=== PATIENT | male | born 1970 | race Caucasian/White ===

== ENCOUNTER → 2023-06-09 13:45 | Outpatient (REF) | payer OTHER, SELFPAY | LOC: HWRAD 13:45 | PROVIDERS: ATTENDING PHYSICIAN Family Medicine | DX: R10.32 Left lower quadrant pain (principal); R10.31 Right lower quadrant pain | CPT/HCPCS: 74177; Q9967 ==

== ENCOUNTER → 2023-11-23 07:44 | Emergency (ER) | payer OTHER, SELFPAY ==
[2023-11-23 07:45] VITALS: BP 167/110
--- NOTE | 2023-11-23 08:09 | ED.GENMED ---
History of Present Illness
<Michelle Centeno PA-C - Last Filed: 11/23/23 09:46>
General
Chief Complaint: Headache
Source: patient
Time Seen by Provider: 11/23/23 07:55
History of Present Illness
History of Present Illness:
53yoM with a history of hypertension, gout, and a prior provoked DVT after traveling presenting for evaluation of a headache. He reports a headache that began 2 days ago. The headache started within a few seconds. He states it felt like blood was
rushing into his head. The headache was a 7/10 at its worst. He started with a 'prickly' sensation in his bilateral forearms yesterday, L>R, which continued into this morning. He continues to have a headache but he states the pain is much better
today. His current headache is described as a bitemporal pressure which he rates a 4/10 in severity. He is otherwise asymptomatic and denies any fevers, neck stiffness, vomiting, visual changes, dizziness, weakness, gait difficulty, chest pain,
shortness of breath. No head trauma. He would also like to be tested for Lyme disease. He takes a baby aspirin daily for prevention.
Past History
<Michelle Centeno PA-C - Last Filed: 11/23/23 09:46>
Past History
ED Past Medical History: Other
Social History
Tobacco: Non-smoker
Alcohol: Occasional
Personal:
Living: with family
Employment: Employed
Family History
Family History: Negative Early CAD or CAD
Phy Exam
<Michelle Centeno PA-C - Last Filed: 11/23/23 09:46>
General Physical Exam
General Presentation: well appearing and no apparent distress
General age: appears stated age
General Skin: warm and dry
General Habitus: normal
General Mental: alert
Cardiovascular Exam
Cardiovascular Exam: regular rate/rhythm, no edema and no murmur
Pulmonary Exam
Pulmonary Exam: lungs clear, no respiratory distress, no crackles and no wheezing
Neurological Exam
Neurological Exam: alert, CN II-XII intact, no motor deficits and other (CN 2-12 intact. PERRL. EOMs intact. 5/5 strength and sensation intact in all extremities. Negative drift x4. Normal finger to nose and heel to lazo bilaterally. )
NIH Stroke Score
Level of Consciousness: 0 - Alert
LOC questions: 0-Answers both correctly
LOC Commands: 0-Performs both correctly
Best Gaze: 0-Normal
Visual [place]: 0=Normal, no visual loss
Facial palsy: 0=Normal, symmetrical
Motor - Right Arm: 0=No drift 10 seconds
Motor - Left Arm: 0=No drift 10 seconds
Motor - Right Le-No drift 5 seconds
Motor - Left Le-No drift 5 seconds
Limb Ataxia: 0-Absent
Sensation: 0-Normal
Best Language: 0-No aphasia
Dysarthria: 0-Normal
Extinction and Inattention: 0-No abnormality
Total Score:: 0
[place] Coma Scale
Eye Opening: Spontaneous
Verbal Response: Oriented
Motor Response: Obeys Commands
GCS Total Score: 15
Skin Exam
Skin Exam: normal color and warm/dry
Psychiatric Exam
Psychiatric Exam: normal mood/affect
<Crystal Landaverde MD - Last Filed: 11/23/23 08:39>
NIH Stroke Score
Total Score:: 0
[place] Coma Scale
GCS Total Score: 15
Course
<Michelle Centeno PA-C - Last Filed: 11/23/23 09:46>
Orders/Labs/Results
Orders:
Orders
11/23/23 08:08
Electrocardiogram (*1) Urgent
Reason for Study: Other
Other Reason for Exam: arm tingling
CT Head W/o Iv Contrast Urgent
Comment:
Reason For Exam: Headache, arm tingling
EKG- Treatment ONCE
11/23/23 08:46
Complete Blood Count/With Diff Urgent
Comprehensive Metabolic Panel Urgent
Lyme Progressive Urgent
Abnormal Lab Results
11/23/23
08:46
WBC 4.6 L 10^3/uL
(4.8-10.8)
RBC 4.26 L 10^6/uL
(4.70-6.10)
Hgb 12.9 L g/dL
(13.0-18.0)
Hct 36.0 L %
(39.0-52.0)
Glucose 101 H mg/dl
(70-99)
11/23/23 08:46
11/23/23 08:46
Vital Signs
Initial and Last Documented VS:
Initial Vital Signs
Temp Pulse Resp BP Pulse Ox
98.7 F 54 18 167/110 96
11/23/23 07:45 11/23/23 07:45 11/23/23 07:45 11/23/23 07:45 11/23/23 07:45
Last Documented Vital Signs
Temp Pulse Resp BP Pulse Ox
98.7 F 50 17 134/89 97
11/23/23 07:45 11/23/23 09:20 11/23/23 09:20 11/23/23 09:20 11/23/23 09:20
<Crystal Landaverde MD - Last Filed: 11/23/23 08:39>
Orders/Labs/Results
Orders:
Orders
11/23/23 08:08
Electrocardiogram (*1) Urgent
Reason for Study: Other
Other Reason for Exam: arm tingling
CT Head W/o Iv Contrast Urgent
Comment:
Reason For Exam: Headache, arm tingling
EKG- Treatment ONCE
11/23/23 08:46
Complete Blood Count/With Diff Urgent
Comprehensive Metabolic Panel Urgent
Lyme Progressive Urgent
Abnormal Lab Results
11/23/23
08:46
WBC 4.6 L 10^3/uL
(4.8-10.8)
RBC 4.26 L 10^6/uL
(4.70-6.10)
Hgb 12.9 L g/dL
(13.0-18.0)
Hct 36.0 L %
(39.0-52.0)
Glucose 101 H mg/dl
(70-99)
11/23/23 08:46
11/23/23 08:46
Vital Signs
Initial and Last Documented VS:
Initial Vital Signs
Temp Pulse Resp BP Pulse Ox
98.7 F 54 18 167/110 96
11/23/23 07:45 11/23/23 07:45 11/23/23 07:45 11/23/23 07:45 11/23/23 07:45
Last Documented Vital Signs
Temp Pulse Resp BP Pulse Ox
98.7 F 50 17 134/89 97
11/23/23 07:45 11/23/23 09:20 11/23/23 09:20 11/23/23 09:20 11/23/23 09:20
Supalt;Michelle Centeno PA-C - Last Filed: 11/23/23 09:46>
MDM/Problems Addressed
Differential Diagnosis Includes:
53yoM here with a headache x 2 days. [place] like blood was rushing to his head. Headache now improved. Also c/o 'prickly' sensation to bilateral forearms L>R. No weakness. He is afebrile and hemodynamically stable. He is well appearing in no distress.
No focal neuro deficit on exam. NIHSS 0. Differential diagnosis includes but is not limited to: complex migraine, tension headache, electrolyte abnormality, doubt CVA
Initial ED plan: Check CBC, CMP, Lyme testing, EKG, and CT head. Patient declines analgesics.
<Michelle Centeno PA-C - Last Filed: 11/23/23 09:46>
*EKG
Interpreted by ED Provider?: Yes
EKG Intrepretation Date: 11/23/23
EKG Intrepretation Time: 08:17
Heart Rate: 53
Rate: bradycardiac
Rhythm: sinus
[place]: normal axis
Interval: normal interval
QRS Pattern: normal QRS
Ischemia: no ischemia
*Critical Care Note
Total Time (30-74mins, 75-104mins- exclusive of procedures): Not Applicable
<Michelle Centeno PA-C - Last Filed: 11/23/23 09:46>
Update Note
Update Note:
Labs overall unremarkable including normal electrolytes and renal function. EKG shows sinus bradycardia without ectopy or ischemic changes. CT head is negative for acute findings. There is a stable 8mm cystic area on CT that is unchanged from prior
imaging and of doubtful clinical significance. On reassessment, his 'prickly' sensation has resolved. No indication for admission. Advised close f/u with PCP and ED return precautions discussed. He expressed understanding and is agreeable to plan.
Patient discharged in stable condition.
ED Attending Note
<Michelle Centeno PA-C - Last Filed: 11/23/23 09:46>
-
Portions of this chart may have been created with voice recognition software.� Occasional wrong word or��sound alike� substitutions may have occurred due to the inherent limitations of voice recognition software.
<Crystal Landaverde MD - Last Filed: 11/23/23 08:39>
ED Attending Note
Patient seen and examined by attending physician: Yes
I performed the substantive portion of visit, reviewed & personally made and approve the management plan that is documented in note by myself or JERAMY.: Yes
ED Attending Note:
Patient appears extremely well and comfortable. He has no meningismus and is smiling and conversational. There is no history of recent illness, fever or rash. There is no sign of meningitis or subarachnoid hemorrhage based on how well patient
looks and his underlying symptoms. Patient's face is symmetric and he has 5 out of 5 strength in all extremities. Due to his tingling ' prickling' isolated to his left forearm and mildly on his right forearm, decision made to do a CT head.
Waiting on results.
Discharge Plan
Departure
Patient Disposition: Home (Routine Discharge)
Date of Disposition: 11/23/23
Time of Disposition: 09:21
Patient with high blood pressure during this ER visit?: Yes
Discharge Problem:
Acute headache
Instructions: Headache, Adult (DC)
Prescriptions:
No Action
sucralfate 1 GM/10 ML suspension
1 gm PO QID Qty: 400 0RF
pantoprazole 40 MG tablet,delayed release (DR/EC)
40 mg PO DAILY Qty: 21 0RF
Referrals:
Torsten Osborne MD [Family Provider] -
Activity Restrictions/Additional Instructions:
Please call today to schedule a follow-up with your family doctor. Return to the ER with any new or worsening symptoms.
Interventions
Interventions:
*Risk Screen - Suicide Last Done: 11/23/23 07:45
*General Assessment Last Done: 11/23/23 07:45
*Neglect/Abuse Screening Last Done: 11/23/23 07:45
*ED COVID-19 Vaccine History Last Done: 11/23/23 07:45
ED- Neurological Assessment Last Done: 11/23/23 09:39
Discharge Date and Time
Print Language: ZAMBIAN
[2023-11-23 08:59] LABS: % Basophils 1.1 % (0-2); % Eosinophils 2.6 % (0-6); % Immature Granulocytes 0.2 % (0-0.5); % Lymphocytes 32.6 % (20.5-51.1); % Monocytes 7.2 % (1.7-9.3); % Neutrophils 56.3 % (42.2-75.2); Absolute Basophils 0.1 10^3/uL (0-0.2); Absolute Eosinophils 0.1 10^3/uL (0-0.7); Absolute Lymphocytes 1.5 10^3/uL (1.2-3.4); Absolute Monocytes 0.3 10^3/uL (0.1-0.6); Absolute Neutrophils 2.6 10^3/uL (1.4-6.5); Hemoglobin 12.9 g/dL (13.0-18.0); Mean Corp Hgb Conc. 35.8 g/dL (33.0-37.0); Mean Corpuscular Hgb 30.3 pg (27.0-31.0); Mean Corpuscular Volume 84.5 fL (80.0-94.0); Mean Platelet Volume 8.9 fL (7.4-10.4); Nucleated Red Blood Cells % 0 % (-); Platelet Count 207 10^3/uL (130-400); Red Blood Cell Count 4.26 10^6/uL (4.70-6.10); White Blood Cell Count 4.6 10^3/uL (4.8-10.8)
[2023-11-23 09:13] LABS: ALT (SGPT) 35 U/L (0-50); AST (SGOT) 26 U/L (17-59); Albumin 4.4 g/dl (3.5-5.0); Alkaline Phosphatase 48 U/L (38-126); Blood Urea Nitrogen 19 mg/dl (9-20); Calcium 9.2 mg/dl (8.4-10.2); Carbon Dioxide 27 mmol/L (22-30); Chloride 105 mmol/L (98-107); Glucose 101 mg/dl (70-99); Potassium 4.3 mmol/L (3.5-5.1); Sodium 139 mmol/L (135-145); Total Bilirubin 0.8 mg/dl (0.2-1.3); Total Protein 6.6 g/dl (6.3-8.2); eGFR > 60.00
[2023-11-23 09:20] VITALS: BP 134/89
[2023-11-23 14:21] LABS: Lyme Antibody Screen, EIA Negative (Negative)
== END | disposition home or self-care (01) ==
LOC: EMR 07:44
PROVIDERS: Physician Assistant; EMERGENCY PHYSICIAN Emergency Medicine; FAMILY PHYSICIAN Family Medicine
DX: R51.9 Headache, unspecified (principal); R20.2 Paresthesia of skin; I10 Essential (primary) hypertension; M10.9 Gout, unspecified; Z86.718 Personal history of other venous thrombosis and embolism; Z79.82 Long term (current) use of aspirin
CPT/HCPCS: 99284; 70450; 80053; 85025; 86618; 93005

== ENCOUNTER → 2024-05-09 15:36 | Outpatient (REF) | payer OTHER, SELFPAY | LOC: DHSLP 15:36 | PROVIDERS: ATTENDING PHYSICIAN Family Medicine | DX: G47.33 Obstructive sleep apnea (adult) (pediatric) (principal) | CPT/HCPCS: 95800 ==